=== PATIENT | female | born 1975 | race Caucasian/White ===

== ENCOUNTER 2021-02-11 06:56 | Day surgery (SDC) | payer MEDICAID, SELFPAY ==
[~2021-02-11] VITALS: Ht 160 cm; Wt 86.2 kg
[2021-02-11] MEDS ORDERED: MEPERIDINE 100 MG INJ. 100 MG/ML VIAL ONE (07:31)
[2021-02-11 07:45] LABS: HCG,QUAL RESULT NEGATIVE (NEGATIVE)
[2021-02-11] MEDS: MIDAZOLAM HCL 5 MG/5 ML VIAL ONE ×3 (08:20→08:26)
[2021-02-11 13:55] VITALS: BP_SYST 132
== END 2021-02-11 09:03 | disposition home or self-care (01) ==
LOC: SDS 06:56 → SMU 07:01 → SDS 09:03
PROVIDERS: ATTEND Internal Medicine Gastroenterology
DX: R10.13 Epigastric pain (principal); K75.4 Autoimmune hepatitis; K29.50 Unspecified chronic gastritis without bleeding; R18.8 Other ascites; K74.60 Unspecified cirrhosis of liver; Z20.822 Contact with and (suspected) exposure to COVID-19; Z79.899 Other long term (current) drug therapy
CPT/HCPCS: 36415; 43239; 84703; 87081; 88305; 88312; 88313; J2175; J2250; U0003